=== PATIENT | female | born 2000 | race Caucasian/White ===

== ENCOUNTER 2022-05-10 00:02 | Emergency (ER) | payer MEDICAID ==
[2022-05-10] MEDS ORDERED: LORazepam 1 MG Tab PO ONE (00:32)
== END 2022-05-10 01:38 | disposition home or self-care (01) ==
LOC: JD.ED 00:02
DX: F41.9 Anxiety disorder, unspecified (principal); R07.89 Other chest pain; I49.8 Other specified cardiac arrhythmias; Z88.0 Allergy status to penicillin
CPT/HCPCS: 36415; 80053; 84484; 85025; 85379; 93005; 99285; A9270